=== PATIENT | female | born 1950 | race Caucasian/White ===

== ENCOUNTER 2021-07-06 09:01 | Outpatient (CLI) | payer MEDICARE, SELFPAY ==
[2021-07-06 09:42] LABS: Basophils # 0.1 10^3/uL (0.0-0.1); Basophils % 0.7 %; Eosinophils # 0.1 10^3/uL (0.0-0.8); Eosinophils % 1.7 %; Hematocrit 43.9 % (37.0-47.0); Lymphocytes # 2.3 10^3/uL (0.8-4.8); Lymphocytes % 31.8 %; Mean Corpuscular HGB Conc 31.9 g/dL (30.0-36.0); Mean Corpuscular Hemoglobin 28.5 pg (28.0-34.0); Mean Corpuscular Volume 89.2 fl (81-99); Mean Platelet Volume 9.1 fL (7.4-10.4); Monocytes # 0.7 10^3/uL (0.2-0.9); Monocytes % 9.6 %; Neutrophils # 4.07 10^3/uL (1.8-7.7); Neutrophils % 55.9 %; Nucleated Red Blood Cells % 0 %; Platelet Count 393 10^3/cmm (130-400); Red Blood Count 4.92 10^6/uL (4.1-5.3); Red Cell Distribution Width 12.4 % (12.1-15.1); White Blood Count 7.3 10^3/uL (4.0-10.0)
[2021-07-06 10:00] LABS: Estmated Average Glucose 146; Hemoglobin A1C 6.7 % (4.0-6.0)
[2021-07-06 10:11] LABS: Alanine Aminotransferase 34 U/L (0-33); Albumin Level 3.9 g/dL (3.5-5.2); Alkaline Phosphatase 110 IU/L (35-105); Aspartate Amino Transferase 30 U/L (0-32); Blood Urea Nitrogen 16 mg/dL (8-23); Calcium 8.1 mg/dL (8.5-10.5); Carbon Dioxide 23 mmol/L (22-29); Chloride 101 mmol/L (98-107); Chol HDL Ratio 2.55 mg/dL (0.0-4.40); Cholesterol 97 mg/dL (0-200); Globulin 2.2 g/dL (1.3-4.6); Glucose 89 mg/dL (65-115); HDL Cholesterol 38 mg/dL (60-100); LDL Cholesterol Calculated 45 mg/dL (50-129); LDL HDL Ratio 1.18 RATIO (0.00-3.22); Osmolality Calculated 283 mOsm/kg (285-295); Sodium 136 mmol/L (136-145); Thyroid Stimulating Hormone 3.71 uIU/mL (0.27-4.20); Total Bilirubin 0.4 mg/dL (0.15-1.2); Total Protein 6.1 g/dL (6.6-8.7); Triglycerides 69 mg/dL (0-150)
== END 2021-07-06 09:02 | disposition home or self-care (01) ==
PROVIDERS: Visit Provider Clinical Nurse Specialist Adult Health
DX: R73.01 Impaired fasting glucose (principal); E78.5 Hyperlipidemia, unspecified
CPT/HCPCS: 80053; 80061; 83036; 84443; 85025

== ENCOUNTER 2021-11-18 13:46 | Emergency (ER) | payer MEDICARE, SELFPAY ==
[2021-11-18 13:53] VITALS: BP 119/85; PULSE 93; RESP 16; TEMP 35.8; O2SAT 97; BMI 24.0
--- NOTE | 2021-11-18 14:02 | ED_ITS ---
HPI - General Adult General: Chief complaint: General Medical Stated complaint: NOSE BLEED Time Seen by Provider: 11/18/21 13:51 History of Present Illness: Patient is 71-year-old female with a history of prior CVA complicated by expressive aphasia on aspirin presented to the emergenc y room with complaints of 2 days of nosebleed. Patient reports 3 episodes of left-sided nosebleed over the last 2 days. Patient denies any heavy bleeding, anticoagulation use, and trauma to the nose or nose picking. Patient denies any cocaine or drug use Onset:2 days ago Duration:2 days Location:home Severity:moderate Associated symptoms: Deny chest pain, dyspnea, nausea, rash, palpitations or vomiting Review of Systems Const: Denies: fever(s) or chills Eyes: Denies: change in vision ENMT: Reports: other (+L sided nose bleed); Denies: mouth pain Card: Denies: chest pain or palpitations Resp: Denies: dyspnea or non-productive cough GI: Denies: abdominal pain, nausea, vomiting or diarrhea : Denies: dysuria Musc: Denies: extremity pain Skin/Breast: Denies: rash or new lesions Neuro: Denies: weakness in extremities Psych: Reports: other (Normal mood) Marbin/Lymph: Denies: easy bruising PFSH ED PFSH: Medical History Stroke Social History Smoking and tobacco status: never smoked Alcohol intake: never Substance/Drug Use: never Physical Exam Const: COMMON NORMALS: alert HENMT: COMMON NORMALS: atraumatic HEAD & SCALP: atraumatic MOUTH: moist mucous membranes not abnormal OTHER: +dried blood in the L nare Eye: COMMON NORMALS: EOMs intact bilaterally and conjunctivae normal CONJUNCTIVA: Yes conjunctivae normal Neck/C-Spine: COMMON NORMALS: full ROM and supple Resp: COMMON NORMALS: normal respiratory effort and clear to auscultation bilaterally AUSCULTATION: clear to auscultation bilaterally Cardio: COMMON NORMALS: regular rate RATE: regular rate GI: COMMON NORMALS: Soft to palpation and non-tender PALPATION: Yes Soft to palpation Extremity: COMMON NORMALS: full ROM Neuro: SENSORIUM/ORIENTATION: Yes alert MOTOR EXAM: No Abnormal motor strength present and Other motor observations present (no focal motor deficits) Psych: COMMON NORMALS: speech normal SPEECH: Yes normal speech MOOD & AFFECT: Yes euthymic mood Course Vital Signs: Vital signs: Vital Signs Temperature 96.4 F L 11/18/21 13:53 Pulse Rate 93 11/18/21 13:53 Respiratory Rate 16 11/18/21 13:53 Blood Pressure 119/85 11/18/21 13:53 Pulse Oximetry 97 11/18/21 13:53 MDM - General Adult Medical Decision Making 71-year-old female presents emergency room with complaints of nosebleed. No active bleeding currently. H&H appears to be stable. Patient is not on any anticoagulation. Do not suspect posterior nosebleed. Rx afrin PRN nose bleed Disposition: Discharge. Patient counseled regarding diagnostic impression, treatment plan. Patient given ED strict return precautions to return for continuation, worsening, or development of new symptoms. Instructed to f/u w/ PCP regarding symptoms today. Patient verbalized understanding. Coding Level of Care Code ED Meal Attendant for Jolly Martinez
[2021-11-18 14:10] LABS: Basophils # 0.1 10^3/uL (0.0-0.1); Basophils % 0.9 %; Eosinophils # 0.2 10^3/uL (0.0-0.8); Eosinophils % 2.4 %; Hematocrit 44.7 % (37.0-47.0); Hemoglobin 14.5 g/dL (11.5-15.3); Lymphocytes # 1.9 10^3/uL (0.8-4.8); Mean Corpuscular HGB Conc 32.4 g/dL (30.0-36.0); Mean Corpuscular Hemoglobin 28.7 pg (28.0-34.0); Mean Corpuscular Volume 88.5 fl (81-99); Mean Platelet Volume 8.7 fL (7.4-10.4); Monocytes # 0.4 10^3/uL (0.2-0.9); Monocytes % 6.4 %; Neutrophils # 4.02 10^3/uL (1.8-7.7); Neutrophils % 61.1 %; Nucleated Red Blood Cells % 0 %; Platelet Count 317 10^3/cmm (130-400); Red Blood Count 5.05 10^6/uL (4.1-5.3); Red Cell Distribution Width 12.9 % (12.1-15.1); White Blood Count 6.6 10^3/uL (4.0-10.0)
[2021-11-18 14:27] LABS: Anion Gap 14.2 (5-19); Blood Urea Nitrogen 9 mg/dL (8-23); Calcium 9.8 mg/dL (8.5-10.5); Carbon Dioxide 28 mmol/L (22-29); Chloride 101 mmol/L (98-107); Glucose 138 mg/dL (65-115); Osmolality Calculated 289 mOsm/kg (285-295); Potassium 4.2 mmol/L (3.5-5.1); Sodium 139 mmol/L (136-145)
[2021-11-18 14:40] VITALS: BP 122/61; PULSE 66; RESP 18; TEMP 36.6; O2SAT 96
== END 2021-11-18 14:59 | disposition home or self-care (01) ==
PROVIDERS: Emergency Provider Emergency Medicine
DX: R04.0 Epistaxis (principal); Z79.82 Long term (current) use of aspirin
CPT/HCPCS: 80048; 85025; 99282

== ENCOUNTER 2022-06-12 13:33 | Outpatient (CLI) | payer MEDICARE, SELFPAY ==
--- NOTE | 2022-06-12 13:45 | USCV_ITS ---
Sabiha Tolbert Age: 72 Gender: F : 1950 Exam Date: 06/12/2022 13:43 Ordering Phys: Scott Mon NP Technologist: [place] [facility] [place]: arterial insufficiency Risk Factors: Previous Vascular Surgery: RIGHT LEFT BP: 108.0 / 69.00 BP: 113.0/ 79.00 0 0 Waveform Velocity (cm/s) Velocity (cm/s) Waveform Triphasic 60.7 Iliac Prox Triphasic 59.8 Iliac Mid Triphasic 64.6 Iliac Distal Triphasic 63.2 LICENSED SALES PRODUCER Triphasic 65.1 SFA Prox Triphasic 71.5 SFA Mid Triphasic 79.7 SFA Dist Triphasic 41.8 POP Triphasic 85.5 CHIMNEY MECHANIC Triphasic 85.0 DPA 1.1 ARMAND 1.1 FINDINGS Resting ARMAND 1.1 bilaterally Normal arterial Doppler waveforms and Doppler flow velocities on the right side Intimal thickening and minimal plaques in the femoral and infrapopliteal vessels on the right side CONCLUSIONS Normal resting ABIs bilaterally Intimal thickening and minimal plaques in the femoral and infrapopliteal vessels on the right side No significant arterial obstruction, based on the above findings Dr Caitlyn Han MD [facility] (Electronically Signed) Final Date: 13 June 2022 08:08 S
== END 2022-06-12 13:34 | disposition home or self-care (01) ==
LOC: RAD 13:34
PROVIDERS: PCP Family Medicine; Visit Provider Clinical Nurse Specialist Adult Health
DX: I73.9 Peripheral vascular disease, unspecified (principal)
CPT/HCPCS: 93926

== ENCOUNTER → 2022-06-25 15:30 | Outpatient (BNVA) | payer MEDICARE, OTHER, SELFPAY | PROVIDERS: PCP Family Medicine; Visit Provider Clinical Nurse Specialist Adult Health | DX: E11.9 Type 2 diabetes mellitus without complications (principal); R60.9 Edema, unspecified | CPT/HCPCS: 80053; 83036; 83880; 85025 ==

== ENCOUNTER 2022-08-07 19:18 | Outpatient (CLI) | payer MEDICARE, OTHER, SELFPAY ==
[2022-08-07 19:41] LABS: Urine Color Light yellow (Yellow)
[2022-08-07 19:42] LABS: Add Urine Microscopic? YES; Bacteria Urine 3+ /hpf; Bilirubin Urine Neg (Negative); Blood Urine Neg (Negative); Glucose Urine UA Norm (Normal); Ketones Urine Negative (Negative); Leukocyte Esterase Urine Negative (Negative); Nitrate Urine Positive (Negative); Protein Urine Neg (Negative); Urine Appearance Hazy (CLEAR); Urobilinogen Urine Neg (Negative); WBC Urine RARE /hpf (0-5); pH Urine 5 (5-7)
[2022-08-07 19:43] LABS: Add Urine Culture? No
== END 2022-08-07 19:19 | disposition home or self-care (01) ==
PROVIDERS: PCP Clinical Nurse Specialist Adult Health; Visit Provider Clinical Nurse Specialist Adult Health
DX: N39.0 Urinary tract infection, site not specified (principal)
CPT/HCPCS: 81001; 87077; 87086; 87186

== ENCOUNTER → 2022-09-10 12:08 | Outpatient (BNVA) | payer MEDICARE, SELFPAY | PROVIDERS: PCP Clinical Nurse Specialist Adult Health; Visit Provider Clinical Nurse Specialist Adult Health | DX: E11.9 Type 2 diabetes mellitus without complications (principal); R60.9 Edema, unspecified | CPT/HCPCS: 80053; 85025; 85651; 86140 ==

== ENCOUNTER → 2022-12-04 15:13 | Outpatient (BNVA) | payer MEDICARE, SELFPAY | PROVIDERS: PCP Clinical Nurse Specialist Adult Health; Visit Provider Clinical Nurse Specialist Adult Health | DX: R60.9 Edema, unspecified (principal) | CPT/HCPCS: 80053; 83880 ==

== ENCOUNTER 2022-12-20 09:23 | Outpatient (CLI) | payer MEDICARE, OTHER, SELFPAY ==
--- NOTE | 2022-12-20 09:30 | USCV_ITS ---
Sabiha Tolbert Age: 72 Gender: F : 1950 Exam Date: 12/20/2022 09:56 Ordering Phys: Scott Mon NP Technologist: KALLIE Exam Location: [facility] – [place], [place] Indication: FLUID RETENTION BP: 134 / 82 HR: 73 Rhythm: Sinus Technical Quality: Suboptimal MEASUREMENTS (Male / Female) Normal Values 2D ECHO LVOT Diameter 2.0 cm LV Ejection Fraction MOD 2C 69.0 % LV Ejection Fraction 2C AL 76.0 % LA Diameter 2.9 cm LA Width 2.4 cm LA Height 2.9 cm RA Width 2.8 cm RA Height 3.2 cm Aorta at Sinotubular Diameter 2.6 cm M-MODE Aortic Annulus Diameter 3.1 cm LA Ao Ratio MM 0.8 DOPPLER AV Peak Velocity 134.0 cm/s LVOT Peak Velocity 115.0 cm/s AV Area Cont Eq vti 2.8 cm squared AV Area Cont Eq pk 2.7 cm squared MV Peak Velocity 99.0 cm/s MV Area PHT 3.1 cm squared Mitral E to A Ratio 0.8 MV E' Velocity 43.5 cm/s Mitral E to MV E' Ratio 8.1 Mitral E to LV E' Lateral Ratio 7.7 Mitral E to LV E' Septal Ratio 8.5 TR Peak Velocity 121.2 cm/s TR Peak Gradient 5.9 mmHg TR Mean Velocity 100.2 cm/s TR Mean Gradient 4.1 mmHg TR Velocity Time Integral 30.1 cm TV Peak E Velocity 63.0 cm/s Right Atrial Pressure 8.0 mmHg Pulmonary Artery Systolic Pressu 13.9 mmHg PV Peak Velocity 92.0 cm/s RV Acceleration Time 0.1 s RV Ejection Time 0.3 s RV AcT/ET 0.4 FINDINGS Left Ventricle Normal left ventricular size, systolic function and wall thickness, with no regional wall motion abnormalities. Grade I/IV diastolic dysfunction (abnormal relaxation filling pattern), normal to mildly elevated filling pressures. Left ventricular ejection fraction is estimated at 65 %. Right Ventricle Normal right ventricular size and systolic function. Normal right ventricular systolic pressure. Right Atrium The right atrium is normal in size. Left Atrium The left atrium is normal in size. Mitral Valve Structurally normal mitral valve without significant stenosis or prolapse. There is no mitral regurgitation. Aortic Valve Structurally normal aortic valve without significant sclerosis or stenosis. There is no aortic regurgitation. Tricuspid Valve Trace tricuspid valve regurgitation. Structurally normal tricuspid valve. Pulmonic Valve Pulmonic valve not well visualized. Pericardium Normal pericardium without effusion. Aorta Normal ascending aorta dimension. IVC Inferior vena cava not visualized. CONCLUSIONS Normal left ventricular size, systolic function and wall thickness, with no regional wall motion abnormalities. Grade I/IV diastolic dysfunction (abnormal relaxation filling pattern), normal to mildly elevated filling pressures. Left ventricular ejection fraction is estimated at 65 %. There are no prior echocardiogram studies to compare. Dr. Rohit Gaitan MD (Electronically Signed) Final Date: 20 December 2022 14:19 S
== END 2022-12-20 09:24 | disposition home or self-care (01) ==
PROVIDERS: PCP Clinical Nurse Specialist Adult Health; Visit Provider Clinical Nurse Specialist Adult Health
DX: R60.9 Edema, unspecified (principal); I51.89 Other ill-defined heart diseases
CPT/HCPCS: 93306

== ENCOUNTER 2023-07-02 13:33 | Outpatient (CLI) | payer MEDICARE, SELFPAY ==
[2023-07-02 16:18] LABS: Anion Gap 15.4 (5-19); Blood Urea Nitrogen 12 mg/dL (8-23); Calcium 9.8 mg/dL (8.5-10.5); Carbon Dioxide 29 mmol/L (22-29); Chloride 98 mmol/L (98-107); Glucose 230 mg/dL (65-115); Osmolality Calculated 293 mOsm/kg (285-295); Potassium 4.4 mmol/L (3.5-5.1); Sodium 138 mmol/L (136-145)
== END 2023-07-02 13:34 | disposition home or self-care (01) ==
PROVIDERS: PCP Clinical Nurse Specialist Adult Health; Visit Provider Clinical Nurse Specialist Adult Health
DX: R60.9 Edema, unspecified (principal); I50.32 Chronic diastolic (congestive) heart failure; R94.4 Abnormal results of kidney function studies
CPT/HCPCS: 80048

== ENCOUNTER 2023-08-17 15:37 | Emergency (ER) | payer MEDICARE, OTHER, SELFPAY ==
[2023-08-17 15:41] VITALS: BP 143/90; PULSE 77; TEMP 36.8; O2SAT 96
--- NOTE | 2023-08-17 15:44 | ED_ITS ---
HPI - General Adult 2 General: Chief complaint: GI Bleed Stated complaint: RECTAL BLEED Time Seen by Provider: 08/17/23 15:39 Source: patient and EMS Mode of arrival: EMS Limitations: no limitations History of Present Illness: 73-year-old female here from nursing nicolette e states that she had a bowel movement had some bright red blood in her stool with her bowel movement today at the half-way. She denies any abdominal pain denies any weakness blood pressure here is normal no black stools no vomiting. Associated symptoms: Deny chest pain, dyspnea, headache(s), nausea, rash or vomiting Review of Systems 2 Const: Denies: fever(s), chills, body aches or change in appetite ENMT: Denies: throat pain or dental pain Card: Denies: chest pain Resp: Denies: dyspnea GI: Reports: hematochezia; Denies: abdominal pain, nausea, vomiting or diarrhea Musc: Denies: neck pain or back pain Skin/Breast: Denies: rash Neuro: Denies: headache(s) PFSH ED 2 PFSH: Medical History (Updated 08/17/23 @ 18:18 by Alber Malik MD) Chronic diastolic heart failure echo 12/2022 EF normal. 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) cause unknown Stroke Surgical History History of thyroid surgery Hx of hysterectomy Family History Father Stroke Mother Parkinson disease Social History Smoking and tobacco/nicotine status: never used tobacco/nicotine Alcohol intake: never Substance/Drug Use: never Physical Exam 2 Const: COMMON NORMALS: no acute distress, patient oriented x3 and healthy appearing HENMT: COMMON NORMALS: normocephalic and atraumatic HEAD & SCALP: n ormocephalic and atraumatic Neck/C-Spine: COMMON NORMALS: full ROM and supple Chest: COMMONS NORMALS: normal inspection of the chest Resp: COMMON NORMALS: normal respiratory effort, No use of accessory muscles and clear to auscultation bilaterally AUSCULTATION: clear to auscultation bilaterally Cardio: COMMON NORMALS: regular rate, regular rhythm and No murmurs present (Cardio) RATE: regular rate RHYTHM: regular rhythm GI: COMMON NORMALS: Normal to inspection, nondistended, normoactive bowel sounds present, Soft to palpation, non-tender and no masses PALPATION: Yes Soft to palpation OTHER: Rectal exam does show a hemorrhoid no bleeding at this time Hemoccult is negative Extremity: COMMON NORMALS: normal to inspection and full ROM Neuro: COMMON NORMALS: patient oriented x3, moves all extremities and no focal motor deficits Psych: COMMON NORMALS: mental status grossly normal, Normal thought process present and cooperative THOUGHT PROCESS: Normal thought process present Skin: COMMON NORMALS: no rashes or lesions noted and no wounds GENERAL SKIN EXAM: no rashes or lesions noted Course 2 Vital Signs: Vital signs: Vital Signs Temperature 98.2 F 08/17/23 15:41 Pulse Rate 77 08/17/23 15:41 Blood Pressure 143/90 08/17/23 15:41 Pulse Oximetry 96 08/17/23 15:41 Oxygen Delivery Me thod Room Air 08/17/23 15:41 MDM - General Adult Medical Decision Making Patient presents here with concern for possible GI bleed her rectal exam here shows no blood is Hemoccult negative she does have a small hemorrhoid blood works normal hemoglobin is normal no signs of any large GI bleeding she stable for discharge back to half-way. Medical Records I reviewed the patient's medical records. Lab Data I reviewed the patient's lab results. 08/17/23 18:06 08/17/23 16:55 Laboratory Results WBC 7.07 10^3/uL (3.29-11.43) 08/17/23 18:06 RBC 4.75 10^6/uL (3.85-5.65) 08/17/23 18:06 Hgb 13.70 g/dL (11.27-16.99) 08/17/23 18:06 Hct 42.0 % (36-47) 08/17/23 18:06 MCV 88.4 fl (85-98) 08/17/23 18:06 MCH 28.8 pg (27-33) 08/17/23 18:06 MCHC 32.6 g/dL (30-55) 08/17/23 18:06 RDW 12.3 % (12.1-15.1) 08/17/23 18:06 Plt Count 281 10^3/cmm (157-399) 08/17/23 18:06 MPV 8.8 fL (7.4-10.4) 08/17/23 18:06 Neut % (Auto) 53.6 % 08/17/23 18:06 Lymph % (Auto) 31.0 % 08/17/23 18:06 [place] % (Auto) 10.0 % 08/17/23 18:06 Eos % (Auto) 4.1 % 08/17/23 18:06 Baso % (Auto) 1.0 % 08/17/23 18:06 Neut # (Auto) 3.79 10^3/uL (1.8-7.7) 08/17/23 18:06 Lymph # (Auto) 2.2 10^3/uL (0.8-4.8) 08/17/23 18:06 [place] # (Auto) 0.7 10^3/uL (0.2-0.9) 08/17/23 18:06 Eos # (Auto) 0.3 10^3/uL (0.0-0.8) 08/17/23 18:06 Baso # (Auto) 0.1 10^3/uL (0.0-0.1) 08/17/23 18:06 Nucleated RBC % (auto) 0 % 08/17/23 18:06 Nucleated RBCs # 0.0 /100WBC 08/17/23 18:06 PT 12.70 SECONDS (12.1-14.9) 08/17/23 16:55 INR 0.92 (0.8-1.2) 08/17/23 16:55 Sodium 136 mmol/L (136-145) 08/17/23 16:55 Potassium 4.6 mmol/L (3.5-5.1) 08/17/23 16:55 Chloride 99 mmol/L (98-107) 08/17/23 16:55 Carbon Dioxide 30 mmol/L (22-29) H 08/17/23 16:55 Anion Gap 11.6 (5-19) 08/17/23 16:55 BUN 12 mg/dL (8-23) 08/17/23 16:55 Creatinine 0.8 mg/dL (0.5-0.9) 08/17/23 16:55 GFR Calculation Not Reportable 08/17/23 16:55 Glucose 128 mg/dL (65-115) H 08/17/23 16:55 Calculated Osmolality 283 mOsm/kg (285-295) L 08/17/23 16:55 Calcium 9.6 mg/dL (8.5-10.5) 08/17/23 16:55 Total Bilirubin 0.3 mg/dL (0.15-1.2) 08/17/23 16:55 AST 20 U/L (0-32) 08/17/23 16:55 ALT 30 U/L (0-33) 08/17/23 16:55 Alkaline Phosphatase 113 U/L (35-105) H 08/17/23 16:55 Total Protein 6.5 g/dL (6.6-8.7) L 08/17/23 16:55 Albumin 4.3 g/dL (3.5-5.2) 08/17/23 16:55 Globulin 2.2 g/dL (1.3-4.6) 08/17/23 16:55 Blood Type O Positive 08/17/23 16:55 Rho(D) Type Rh positive 08/17/23 16:55 Antibody Screen Negative 08/17/23 16:55 No radiology studies performed this visit Discharge Plan Discharge Patient Disposition: Home Clinical Impression: Hemorrhoids Prescriptions: No Action aspirin 81 mg tablet,delayed release (DR/EC) 81 mg PO DAILY metformin 500 mg tablet 500 mg PO DAILY atorvastatin 40 mg tablet 40 mg PO DAILY Saline Nasal 0.65 % aerosol,spray 1 spray intranasal BID PRN (Reason: nasal congestion) loratadine [Allergy Relief (loratadine)] 10 mg tablet 10 mg PO DAILY albuterol sulfate 90 mcg/actuation HFA aerosol inhaler 2 inh inhalation QID PRN (Reason: shortness of breath or wheezing) Qty: 8.5 2RF sennosides [senna] 8.6 mg tablet PO duloxetine 30 mg capsule,delayed release(DR/EC) 30 mg PO .every other day Qty: 15 6RF (DME) Inhaler spacer See Rx Instructions .Route .MEDSUPPLY Qty: 1 0RF Rx Instructions: As directed docusate sodium 100 mg capsule 200 mg PO BID Qty: 120 11RF tramadol 50 mg tablet 50 mg PO BID PRN (Reason: pain) Qty: 60 2RF furosemide [Lasix] 20 mg tablet 20 mg PO DAILY Qty: 30 2RF polyethylene glycol 3350 [Miralax] 17 gram/dose powder 4 g PO DAILY Qty: 119 11RF nystatin 100,000 unit/gram powder 1 applic topical BID Qty: 60 3RF Rx Instructions: apply under both breasts BID Discharge Orders: Discharge ED (Routine); Ordered 08/17/23 Ordered By: Alber Malik Referrals: Scott Mon EMULSIFICATION OPERATOR [Primary Care Provider] - 1-3 days Discharge Diet: Advance as tolerated Discharge Activity: Resume usual activity Patient Instructions: Hemorrhoids (ED) Coding Level of Care Code ED Wall And Floor Tiler for Jolly Martinez
[2023-08-17 17:20] LABS: INR 0.92 (0.8-1.2)
[2023-08-17 17:28] LABS: Alanine Aminotransferase 30 U/L (0-33); Albumin Level 4.3 g/dL (3.5-5.2); Alkaline Phosphatase 113 U/L (35-105); Anion Gap 11.6 (5-19); Aspartate Amino Transferase 20 U/L (0-32); Blood Urea Nitrogen 12 mg/dL (8-23); Calcium 9.6 mg/dL (8.5-10.5); Carbon Dioxide 30 mmol/L (22-29); Chloride 99 mmol/L (98-107); Creatinine Clr Calc Pharmacy 63.3292; Globulin 2.2 g/dL (1.3-4.6); Glucose 128 mg/dL (65-115); Osmolality Calculated 283 mOsm/kg (285-295); Potassium 4.6 mmol/L (3.5-5.1); Sodium 136 mmol/L (136-145); Total Bilirubin 0.3 mg/dL (0.15-1.2); Total Protein 6.5 g/dL (6.6-8.7)
[2023-08-17 18:10] LABS: Basophils # 0.1 10^3/uL (0.0-0.1); Eosinophils # 0.3 10^3/uL (0.0-0.8); Eosinophils % 4.1 %; Lymphocytes # 2.2 10^3/uL (0.8-4.8); Mean Corpuscular HGB Conc 32.6 g/dL (30-55); Mean Corpuscular Hemoglobin 28.8 pg (27-33); Mean Corpuscular Volume 88.4 fl (85-98); Mean Platelet Volume 8.8 fL (7.4-10.4); Monocytes # 0.7 10^3/uL (0.2-0.9); Neutrophils # 3.79 10^3/uL (1.8-7.7); Neutrophils % 53.6 %; Nucleated Red Blood Cells % 0 %; Platelet Count 281 10^3/cmm (157-399); Red Blood Count 4.75 10^6/uL (3.85-5.65); Red Cell Distribution Width 12.3 % (12.1-15.1); White Blood Count 7.07 10^3/uL (3.29-11.43)
[2023-08-17 21:14] VITALS: BP 147/92; PULSE 94; RESP 18; O2SAT 92
== END 2023-08-17 21:32 | disposition home or self-care (01) ==
PROVIDERS: Emergency Provider Emergency Medicine; PCP Clinical Nurse Specialist Adult Health
DX: K64.9 Unspecified hemorrhoids (principal); Z79.82 Long term (current) use of aspirin; Z79.84 Long term (current) use of oral hypoglycemic drugs; I11.0 Hypertensive heart disease with heart failure; I50.32 Chronic diastolic (congestive) heart failure; E11.9 Type 2 diabetes mellitus without complications; E78.5 Hyperlipidemia, unspecified; Z86.73 Personal history of transient ischemic attack (TIA), and cerebral infarction without residual deficits
CPT/HCPCS: 80053; 85025; 85610; 86850; 86900; 99283

== ENCOUNTER 2023-11-06 15:01 | Emergency (ER) | payer MEDICARE, SELFPAY ==
[2023-11-06 15:03] VITALS: BP 126/96; PULSE 107; RESP 16; TEMP 37; O2SAT 95; BMI 32.5
--- NOTE | 2023-11-06 15:04 | ECG_ITS ---
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 Measurements Intervals [place] Rate: 110 P: 63 NV: 163 QRS: 70 QRSD: 79 T: 69 QT: 325 QTc: 440 Interpretive Statements SINUS TACHYCARDIA SEPTAL MYOCARDIAL INFARCTION , PROBABLY OLD [40+ ms Q WAVE IN V1/V2] No previous ECG available for comparison Electronically Signed On 11-06-2023 17:06:05 CDT by Isaac Diaz M.D. [email or web address]
--- NOTE | 2023-11-06 15:04 | XR_ITS ---
WS: [id number] Portable AP upright chest, 11/06/2023 Clinical Data: cp Comparison: None. Findings: No nodules, masses or effusions are seen. The heart is normal. The pulmonary vascularity is not increased. No pneumonia or pneumothorax is seen. The aortic arch and descending thoracic aorta c alcification and mild tortuosity. There is a minimal dextroscoliosis of the thoracic spine. XR/XR chest 1V portable [id number] Impression: Atherosclerosis
--- NOTE | 2023-11-06 15:17 | CTR_ITS ---
PROCEDURE INFORMATION: Exam: CTA Chest With Contrast Exam date and time: 11/06/2023 4:24 PM Age: 73 years old Clinical indication: Dyspnea; Additional info: SOB TECHNIQUE: Imaging protocol: Computed tomographic angiography of the chest with contrast. Exam focused on the arteries. 3D rendering (Not supervised by radiologist): MIP and/or 3D reconstructed images were created by the technologist. Radiation optimization: All CT scans at this facility use at least one of these dose optimization techniques: automated exposure control; mA and/or kV adjustment per patient size (includes targeted exams where dose is matched to clinical indication); or iterative reconstruction. Contrast material: OMNI 350; Contrast volume: 62 ml; Contrast route: INTRAVENOUS (IV); COMPARISON: CR XR chest 1V portable [id number] 11/06/2023 3:11 PM RADIATION DOSE METRICS: Total DLP (mGy-cm): 443.27 FINDINGS: Pulmonary arteries: No evidence of pulmonary thromboembolism. Aorta: No evidence of aneurysmal dilatation or dissection of the thoracic aorta. Thyroid: Grossly unremarkable. Lungs: No focal consolidation. No evidence of pneumonia. Pleural spaces: No evidence of pleural effusion. No pneumothorax. Heart: No cardiomegaly. No pericardial effusion. Mediastinal space: No evidence of mediastinal mass, fluid collection or hematoma. Lymph nodes: No mediastinal or hilar adenopathy. Bones/joints: No evidence of acute fracture or aggressive osseous lesion. Soft tissues: No evidence of fluid collection or hematoma in the superficial soft tissues. Other findings: No evidence of acute abnormality in the upper abdomen. CT/CT angio chest PE protcl [id number] IMPRESSION: 1. No evidence of PE or acute aortic abnormality.
--- NOTE | 2023-11-06 15:28 | ED_ITS ---
HPI - Chest Pain 2 General: Chief Complaint: Chest Pain Stated Complaint: cp, sob Time Seen by Provider: 11/06/23 15:03 Source: patient and EMS Mode of arrival: EMS Limitations: no limitations History of Present Illness: 73-year-old female here from [facility] living she been complaining of chest pain she states she had a sharp pain in the center of her chest for the last 2 days. She had some dyspnea as well denies any cough she denies any fever rates her pain a 6 out of 10 currently denies any worsening improving factors. She had a history of a CVA in the past Associated symptoms: Reports dyspnea; Deny abdominal pain, fever(s), nausea or vomiting Review of Systems 2 Const: Denies: fever(s), chills, body aches or change in appetite ENMT: Denies: throat pain or dental pain Card: Reports: chest pain Resp: Reports: dyspnea GI: Denies: abdominal pain, nausea, vomiting or diarrhea Musc: Denies: neck pain or back pain Skin/Breast: Denies: rash Neuro: Denies: headache(s) PFSH ED 2 PFSH: Medical History (Updated 11/06/23 @ 17:41 by Alber Malik MD) Chronic diastolic heart failure echo 12/2022 EF normal. 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) cause unknown Stroke Surgical History History of thyroid surgery Hx of hysterectomy Family History Father Stroke Mother Parkinson disease Social History Smoking and tobacco/nicotine status: never used tobacco/nicotine Alcohol intake: never Substance/Drug Use: never Physical Exam 2 Const: COMMON NORMALS: no acute distress, patient oriented x3 and healthy appearing HENMT: COMMON NORMALS: normocephalic and atraumatic HEAD & SCALP: n ormocephalic and atraumatic Eye: COMMON NORMALS: conjunctivae normal CONJUNCTIVA: Yes conjunctivae normal Neck/C-Spine: COMMON NORMALS: full ROM and supple Chest: COMMONS NORMALS: normal inspection of the chest Resp: COMMON NORMALS: normal respiratory effort, No retractions, No use of accessory muscles and clear to auscultation bilaterally AUSCULTATION: clear to auscultation bilaterally Cardio: COMMON NORMALS: regular rhythm and No murmurs present (Cardio) R ATE: tachycardic RHYTHM: regular rhythm GI: COMMON NORMALS: Normal to inspection, nondistended, normoactive bowel sounds present, Soft to palpation, non-tender and no masses PALPATION: Yes Soft to palpation Extremity: COMMON NORMALS: normal to inspection and full ROM Neuro: COMMON NORMALS: patient oriented x3, moves all extremities and no focal motor deficits Psych: COMMON NORMALS: mental status grossly normal, Normal thought process present and cooperative THOUGHT PROCESS: Normal thought process present Skin: COMMON NORMALS: no rashes or lesions noted and no wounds GENERAL SKIN EXAM: no rashes or lesions noted Course 2 Vital Signs: Vital signs: Vital Signs Temperature 98.6 F 11/06/23 15:03 Pulse Rate 98 11/06/23 16:07 Respiratory Rate 16 11/06/23 15:03 Blood Pressure 102/70 11/06/23 16:07 Pulse Oximetry 96 11/06/23 16:07 Oxygen Delivery Me thod Room Air 11/06/23 16:07 MDM - Chest Pain Medical Decision Making Patient presented here with chest pain her chest pain since resolved her CT shows no aneurysm or PE. Initial troponin is 13 patient refused her 2-hour troponin drawn wants to go back to the residential did speak to her and informed like to check a 2-hour troponin to rule ACS out and cannot truly rule out an NSTEMI without it she understands this and states that she feels improved and just wants to go back home she will sign out AMA return if worsening Medical Records I reviewed the patient's medical records. Lab Data I reviewed the patient's lab results. 11/06/23 15:26 11/06/23 15:26 Radiology Impressions Chest X-Ray 11/06/23 15:04 Impression: Atherosclerosis Chest CTA 11/06/23 15:17 IMPRESSION: 1. No evidence of PE or acute aortic abnormality. Laboratory Results WBC 12.71 10^3/uL (3.29-11.43) H 11/06/23 15:26 RBC 4.81 10^6/uL (3.85-5.65) 11/06/23 15: Hgb 13.80 g/dL (11.27-16.99) 11/06/23 15: Hct 42.9 % (36-47) 11/06/23 15: MCV 89.2 fl (85-98) 11/06/23 15:26 MCH 28.7 pg (27-33) 11/06/23 15: MCHC 32.2 g/dL (30-55) 11/06/23 15:26 RDW 12.4 % (12.1-15.1) 11/06/23 15: Plt Count 268 10^3/cmm (157-399) 11/06/23 15: MPV 8.9 fL (7.4-10.4) 11/06/23 15: Neut % (Auto) 83.3 % 11/06/23 15: Lymph % (Auto) 9.3 % 11/06/23: [place] % (Auto) 6.2 % 11/06/23 15: Eos % (Auto) 0.6 % 11/06/23 15: Baso % (Auto) 0.3 % 11/06/23: Neut # (Auto) 10.59 10^3/uL (1.8-7.7) H 11/06/23 15: Lymph # (Auto) 1.2 10^3/uL (0.8-4.8) 11/06/23 15: [place] # (Auto) 0.8 10^3/uL (0.2-0.9) 11/06/23: Eos # (Auto) 0.1 10^3/uL (0.0-0.8) 11/06/23: Baso # (Auto) 0.0 10^3/uL (0.0-0.1) 11/06/23: Nucleated RBC % (auto) 0 % 11/06/23: Nucleated RBCs # 0.0 /100WBC 11/06/23 15: PT 13.00 SECONDS (12.1-14.9) 11/06/23: INR 0.96 (0.8-1.2) 11/06/23 15:26 Sodium 137 mmol/L (136-145) 11/06/23 15:26 Potassium 4.4 mmol/L (3.5-5.1) 11/06/23 15:26 Chloride 98 mmol/L (98-107) 11/06/23 15:26 Carbon Dioxide 28 mmol/L (22-29) 11/06/23 15:26 Anion Gap 15.4 (5-19) 11/06/23 15:26 BUN 8 mg/dL (8-23) 11/06/23 15:26 Creatinine 0.7 mg/dL (0.5-0.9) 11/06/23 15:26 GFR Calculation Not Reportable 11/06/23 15:26 Glucose 215 mg/dL (65-115) H 11/06/23 15:26 Calculated Osmolality 289 mOsm/kg (285-295) 11/06/23 15:26 Calcium 9.4 mg/dL (8.5-10.5) 11/06/23 15:26 Total Bilirubin 0.6 mg/dL (0.15-1.2) 11/06/23 15:26 AST 17 U/L (0-32) 11/06/23 15:26 ALT 32 U/L (0-33) 11/06/23 15:26 Alkaline Phosphatase 121 U/L (35-105) H 11/06/23 15:26 Troponin T Baseline 13 ng/L (0-10) H 11/06/23 15:26 NT-Pro-B Natriuret Pep 102 pg/mL (0-450) 11/06/23 15:26 Total Protein 7.1 g/dL (6.6-8.7) 11/06/23 15:26 Albumin 4.0 g/dL (3.5-5.2) 11/06/23 15:26 Globulin 3.1 g/dL (1.3-4.6) 11/06/23 15:26 All radiology interpretation(s) finalized by discharge EKG Data EKG 1: I personally reviewed and interpreted this EKG as follows: EKG interpretation date: 11/06/23 EKG interpretation time: 15:07 Interpretation: sinus tach hr [address] or t wave abnormalities qrs 79 qtc 390 Discharge Plan Discharge Patient Disposition: Left Against Medical Advice Clinical Impression: Chest pain Condition: Stable Prescriptions: No Action aspirin 81 mg tablet,delayed release (DR/EC) 81 mg PO DAILY metformin 500 mg tablet 500 mg PO DAILY atorvastatin 40 mg tablet 40 mg PO DAILY Saline Nasal 0.65 % aerosol,spray 1 spray intranasal BID PRN (Reason: nasal congestion) loratadine [Allergy Relief (loratadine)] 10 mg tablet 10 mg PO DAILY albuterol sulfate 90 mcg/actuation HFA aerosol inhaler 2 inh inhalation QID PRN (Reason: shortness of breath or wheezing) Qty: 8.5 2RF sennosides [senna] 8.6 mg tablet PO (DME) Inhaler spacer See Rx Instructions .Route .MEDSUPPLY Qty: 1 0RF Rx Instructions: As directed docusate sodium 100 mg capsule 200 mg PO BID Qty: 120 11RF furosemide [Lasix] 20 mg tablet 20 mg PO DAILY Qty: 30 2RF polyethylene glycol 3350 [Miralax] 17 gram/dose powder 4 g PO DAILY Qty: 119 11RF nystatin 100,000 unit/gram powder 1 applic topical BID Qty: 60 3RF Rx Instructions: apply under both breasts BID tramadol 50 mg tablet 50 mg PO BID PRN (Reason: pain) Qty: 60 2RF duloxetine 30 mg capsule,delayed release(DR/EC) 30 mg PO EVERY OTHER DAY Referrals: Scott Mon NP [Primary Care Provider] - Coding Level of Care Code ED Scarfer for Jolly Martinez
[2023-11-06 15:35] LABS: Basophils % 0.3 %; Eosinophils # 0.1 10^3/uL (0.0-0.8); Eosinophils % 0.6 %; Hematocrit 42.9 % (36-47); Lymphocytes # 1.2 10^3/uL (0.8-4.8); Lymphocytes % 9.3 %; Mean Corpuscular HGB Conc 32.2 g/dL (30-55); Mean Corpuscular Hemoglobin 28.7 pg (27-33); Mean Corpuscular Volume 89.2 fl (85-98); Mean Platelet Volume 8.9 fL (7.4-10.4); Monocytes # 0.8 10^3/uL (0.2-0.9); Monocytes % 6.2 %; Neutrophils # 10.59 10^3/uL (1.8-7.7); Neutrophils % 83.3 %; Nucleated Red Blood Cells % 0 %; Platelet Count 268 10^3/cmm (157-399); Red Blood Count 4.81 10^6/uL (3.85-5.65); Red Cell Distribution Width 12.4 % (12.1-15.1); White Blood Count 12.71 10^3/uL (3.29-11.43)
[2023-11-06 15:48] LABS: INR 0.96 (0.8-1.2)
[2023-11-06 15:57] LABS: Troponin(5th) Baseline 13 ng/L (0-10)
[2023-11-06 16:07] VITALS: BP 102/70; PULSE 98; O2SAT 96
[2023-11-06 16:07] LABS: Alanine Aminotransferase 32 U/L (0-33); Alkaline Phosphatase 121 U/L (35-105); Anion Gap 15.4 (5-19); Aspartate Amino Transferase 17 U/L (0-32); Blood Urea Nitrogen 8 mg/dL (8-23); Calcium 9.4 mg/dL (8.5-10.5); Carbon Dioxide 28 mmol/L (22-29); Chloride 98 mmol/L (98-107); Creatinine Clr Calc Pharmacy 64.5477; Globulin 3.1 g/dL (1.3-4.6); Glucose 215 mg/dL (65-115); NT Pro B Type Natriuretic Pept 102 pg/mL (0-450); Osmolality Calculated 289 mOsm/kg (285-295); Potassium 4.4 mmol/L (3.5-5.1); Sodium 137 mmol/L (136-145); Total Bilirubin 0.6 mg/dL (0.15-1.2); Total Protein 7.1 g/dL (6.6-8.7)
[2023-11-06] MEDS: iohexol 350 mg/mL 500 mL Btl (per mL) IV (16:30)
--- NOTE | 2023-11-06 17:04 | ECG_ITS ---
[facility] Test Date: 2023-11-06 Pat Name: Sabiha Tolbert Department: Room: Gender: Female Brand Attendant: : 1950 Requested By: Alber Malik Order Number: [id number] Arben MD: Isaac Diaz M.D. Measurements Intervals [place] Rate: 93 P: 43 [place]: 167 QRS: 67 QRSD: 81 T: 59 QT: 344 QTc: 429 Interpretive Statements SINUS RHYTHM Compared to ECG 11/06/2023 15:07:28 Sinus tachycardia no longer present Myocardial infarct finding no longer present Electronically Signed On 11-06-2023 17:11:24 CDT by Isaac Diaz M.D. [id number]
[2023-11-06 19:26] VITALS: BP 117/77; PULSE 106; RESP 18; O2SAT 93
--- NOTE | 2023-11-06 19:55 | PC.NURSE ---
Patient did refuse 2-hr blood draw for troponin. Dr Malik was notified, no further orders were received.
[2023-11-06 20:47] VITALS: BP 132/78; PULSE 97; RESP 20; O2SAT 91
[2023-11-06 22:30] VITALS: BP 108/69; O2SAT 91
== END 2023-11-06 23:45 | disposition home or self-care (01) ==
PROVIDERS: Emergency Provider Emergency Medicine; PCP Clinical Nurse Specialist Adult Health
DX: R07.9 Chest pain, unspecified (principal); Z79.82 Long term (current) use of aspirin; Z79.84 Long term (current) use of oral hypoglycemic drugs; I11.0 Hypertensive heart disease with heart failure; I50.32 Chronic diastolic (congestive) heart failure; E11.9 Type 2 diabetes mellitus without complications; E78.5 Hyperlipidemia, unspecified; Z86.73 Personal history of transient ischemic attack (TIA), and cerebral infarction without residual deficits
CPT/HCPCS: 36415; 71045; 71275; 80053; 83880; 84484; 85025; 85610; 93005; 99285; Q9967

== ENCOUNTER 2024-02-11 00:30 | Emergency (ER) | payer MEDICARE, SELFPAY ==
[2024-02-11] VITALS (9 sets, daily range): BP systolic 118–138; BP diastolic 86–112; PULSE 88–105; RESP 14–18; TEMP 36.5; O2SAT 93–97; BMI 29.5
--- NOTE | 2024-02-11 00:32 | ECG_ITS ---
[facility] Test Date: 2024-02-11 Pat Name: Sabiha Tolbert Department: Room: Gender: Female Administrative Support Manager: : 1950 Requested By: Zurdo Castellanos Order Number: [id number] Arben MD: Caitlyn Han M.D. Measurements Intervals [place] Rate: 93 P: 56 [place]: 205 QRS: 38 QRSD: 70 T: 50 QT: 329 QTc: 410 Interpretive Statements SINUS RHYTHM LOW QRS VOLTAGE IN PRECORDIAL LEADS [QRS DEFLECTION < 1.0 mV IN CHEST LEADS] MINIMAL ST DEPRESSION [0.025+ mV ST DEPRESSION] Compared to ECG 11/06/2023 17:09:35 Low QRS voltage now present ST (T wave) deviation now present Heavy baseline artifact. Need to repeat the study. Electronically Signed On 02-12-2024 8:56:59 CDT by Caitlyn Han M.D. [id number]
--- NOTE | 2024-02-11 00:44 | XRR_ITS ---
PROCEDURE INFORMATION: Exam: XR Abdomen Exam date and time: 02/11/2024 1:12 AM Age: 74 years old Clinical indication: Abdominal pain; Generalized; Additional info: Abdominal distention TECHNIQUE: Imaging protocol: Radiologic exam of the abdomen. Views: 2 Views. Upright and supine views. COMPARISON: CT angio chest PE protcl [id number] 11/06/2023 4:24 PM FINDINGS: Lungs: The lungs are clear. No pulmonary consolidation. Pleural spaces: No pleural effusion or pneumothorax. Heart/Mediastinum: Heart size is within normal limits. Gastrointestinal tract: Normal. No bowel dilation. Intraperitoneal space: Normal. No free air. Vasculature: Atherosclerotic calcifications of the aorta are noted. Bones/joints: No acute osseous abnormalities are seen. XR/XR acute abdomen series [id number] IMPRESSION: No acute cardiopulmonary disease.
[2024-02-11 00:50] LABS: Basophils # 0.1 10^3/uL (0.0-0.1); Basophils % 0.7 %; Eosinophils # 0.1 10^3/uL (0.0-0.8); Eosinophils % 1.6 %; Hematocrit 42.4 % (36-47); Lymphocytes # 1.6 10^3/uL (0.8-4.8); Lymphocytes % 18.7 %; Mean Corpuscular HGB Conc 31.6 g/dL (30-55); Mean Corpuscular Hemoglobin 27.8 pg (27-33); Mean Platelet Volume 8.7 fL (7.4-10.4); Monocytes # 0.7 10^3/uL (0.2-0.9); Monocytes % 7.8 %; Neutrophils # 6.05 10^3/uL (1.8-7.7); Neutrophils % 70.8 %; Nucleated Red Blood Cells % 0 %; Platelet Count 303 10^3/cmm (157-399); Red Blood Count 4.82 10^6/uL (3.85-5.65); Red Cell Distribution Width 12.7 % (12.1-15.1); White Blood Count 8.55 10^3/uL (3.29-11.43)
[2024-02-11 01:07] LABS: Alanine Aminotransferase 33 U/L (0-33); Albumin Level 4.1 g/dL (3.5-5.2); Alkaline Phosphatase 143 U/L (35-105); Anion Gap 16.6 (5-19); Aspartate Amino Transferase 19 U/L (0-32); Blood Urea Nitrogen 11 mg/dL (8-23); Calcium 9.4 mg/dL (8.5-10.5); Carbon Dioxide 28 mmol/L (22-29); Chloride 94 mmol/L (98-107); Creatinine Clr Calc Pharmacy 60.4701; Glucose 259 mg/dL (65-115); Osmolality Calculated 286 mOsm/kg (285-295); Potassium 4.6 mmol/L (3.5-5.1); Sodium 134 mmol/L (136-145); Total Bilirubin 0.4 mg/dL (0.15-1.2); Total Protein 7.1 g/dL (6.6-8.7)
[2024-02-11 01:12] LABS: NT Pro B Type Natriuretic Pept 65 pg/mL (0-450)
--- NOTE | 2024-02-11 02:37 | ED_ITS ---
HPI - SOB/Dyspnea 2 General: Chief Complaint: Shortness of Breath/Dyspnea Stated Complaint: SOB Time Seen by Provider: 02/11/24 00:38 History of Present Illness: HPI Narrative: This patient is a 74-year-old white female halfway patient who was sent for evaluation of shortness of breath. Patient has no complaints here. She states she was recently treated for lower extremity edema but that has improved. She is not having any chest pain. No cough or fever. Related Data Home Medications Medication Instructions Recorded Confirmed aspirin 81 mg tablet,delayed 81 mg PO DAILY 04/30/22 11/28/23 release atorvastatin 40 mg tablet 40 mg PO DAILY 04/30/22 11/28/23 loratadine 10 mg tablet (Allergy 10 mg PO DAILY 04/30/22 11/28/23 Relief (loratadine)) metformin 500 mg tablet 500 mg PO DAILY 04/30/22 11/28/23 sodium chloride 0.65 % nasal spray 1 spray intranasal BID PRN nasal 04/30/22 11/28/23 aerosol (Saline Nasal) congestion sennosides 8.6 mg tablet (senna) ea PO 12/04/22 11/28/23 duloxetine 30 mg capsule,delayed 30 mg PO EVERY OTHER DAY 11/06/23 11/28/23 release Previous Rx's Medication Instructions Recorded albuterol sulfate 90 mcg/actuation 2 inh inhalation QID PRN shortness 09/10/22 aerosol inhaler of breath or wheezing #8.5 grams Inhaler spacer #1 ea 09/12/22 docusate sodium 100 mg capsule 200 mg (2 x 100 mg) PO BID #120 01/07/23 caps furosemide 20 mg tablet (Lasix) 20 mg PO DAILY #30 tabs 02/27/23 polyethylene glycol 3350 17 4 g PO DAILY #119 grams 03/24/23 gram/dose oral powder (Miralax) nystatin 100,000 unit/gram topical 1 applic topical BID #60 grams 04/22/23 powder tramadol 50 mg tablet 50 mg PO BID PRN pain #60 tabs 10/28/23 Allergies Allergy/AdvReac Type Severity Reaction Status Date / Time potato Allergy Unknown Unknown Verified 11/28/23 10:55 oranges Allergy Unknown Unknown Uncoded 11/28/23 10:55 Review of Systems 2 General: Reports: 10 or more systems reviewed and unremarkable except in HPI and below PFS ED 2 PFSH: Medical History (Updated 02/11/24 @ 02:37 by Zurdo Castellanos MD) Chronic diastolic heart failure echo 12/2022 EF normal. 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) cause unknown Stroke Surgical History History of thyroid surgery Hx of hysterectomy Family History Father Stroke Mother Parkinson disease Social History Smoking and tobacco/nicotine status: never used tobacco/nicotine Alcohol intake: never Substance/Drug Use: never Physical Exam 2 Const: COMMON NORMALS: no acute distress, patient oriented x3 and no limitations GENERAL APPEARANCE: cooperative and comfortable HENMT: COMMON NORMALS: normocephalic, atraumatic, Normal nasal mucous membranes and turbinates present, moist oral mucous membranes and oropharynx normal HEAD & SCALP: normal to inspection, normocephalic and atraumatic F BURKE & SINUS: normal facial exam NOSE: Normal nasal mucous membranes and turbinates present Eye: COMMON NORMALS: Equal, round and reactive pupils present, EOMs intact bilaterally and conjunctivae normal GENERAL EYE: appearance normal, both eyes and all related structures CONJUNCTIVA: Yes conjunctivae normal PUPIL: Yes Equal, round and reactive pupils present Neck/C-Spine: COMMON NORMALS: supple and no JVD Chest: COMMONS NORMALS: normal inspection of the chest Resp: COMMON NORMALS: normal respiratory effort and clear to auscultation bilaterally AUSCULTATION: clear to auscultation bilaterally Cardio: COMMON NORMALS: no JVD, regular rate, regular rhythm, No gallops present (Cardio), No murmurs present (Cardio) and No rub (Cardio) RATE: r egular rate RHYTHM: regular rhythm GI: COMMON NORMALS: Soft to palpation and non-tender INSPECTION: Yes abdominal distension AUSCULTATION: Yes normoactive bowel sounds PALPATION: Yes Soft to palpation and No Tenderness to palpation present (GI) : COMMON NORMALS: Yes no CVA tenderness BLADDER/KIDNEY EXAM: Yes no CVA tenderness Back/Pelvis: COMMON NORMALS: no CVA tenderness and thoracic and lumbar spine normal to inspection Extremity: COMMON NORMALS: normal to inspection Neuro: COMMON NORMALS: patient oriented x3 and CN's II-XII intact bilaterally Psych: COMMON NORMALS: mental status grossly normal, Normal thought process present and cooperative THOUGHT PROCESS: Normal thought process present Skin: COMMON NORMALS: no rashes or lesions noted, turgor normal and no jaundice GENERAL SKIN EXAM: no rashes or lesions noted and turgor normal Course 2 Vital Signs: Vital signs: Vital Signs Temperature 97.7 F 02/11/24 00:32 Pulse Rate 88 02/11/24 02:12 Respiratory Rate 15 02/11/24 02:12 Blood Pressure 131/86 02/11/24 02:12 Pulse Oximetry 95 02/11/24 02:12 Oxygen Delivery Me thod Room Air 02/11/24 02:12 MDM - SOB/Dyspnea Medical Decision Making Chest x-ray along with abdominal flatplate and upright films were normal. EKG was normal. CBC and CMP were normal. BNP was 65. Patient was asymptomatic throughout her ER stay. I did have the nurse contact the halfway concerning the patient's protuberant abdomen and they state that is her typical state. She was discharged in stable condition to return back to the halfway. Follow-up with primary care physician as needed. Lab Data 02/11/24 00:20 02/11/24 00:20 Labs/Radiology: Laboratory Results WBC 8.55 10^3/uL (3.29-11.43) 02/11/24 00:20 RBC 4.82 10^6/uL (3.85-5.65) 02/11/24 00:20 Hgb 13.40 g/dL (11.27-16.99) 02/11/24 00:20 Hct 42.4 % (36-47) 02/11/24 00:20 MCV 88.0 fl (85-98) 02/11/24 00:20 MCH 27.8 pg (27-33) 02/11/24 00:20 MCHC 31.6 g/dL (30-55) 02/11/24 00:20 RDW 12.7 % (12.1-15.1) 02/11/24 00:20 Plt Count 303 10^3/cmm (157-399) 02/11/24 00:20 MPV 8.7 fL (7.4-10.4) 02/11/24 00:20 Neut % (Auto) 70.8 % 02/11/24 00:20 Lymph % (Auto) 18.7 % 02/11/24 00:20 [place] % (Auto) 7.8 % 02/11/24 00:20 Eos % (Auto) 1.6 % 02/11/24 00:20 Baso % (Auto) 0.7 % 02/11/24 00:20 Neut # (Auto) 6.05 10^3/uL (1.8-7.7) 02/11/24 00:20 Lymph # (Auto) 1.6 10^3/uL (0.8-4.8) 02/11/24 00:20 [place] # (Auto) 0.7 10^3/uL (0.2-0.9) 02/11/24 00:20 Eos # (Auto) 0.1 10^3/uL (0.0-0.8) 02/11/24 00:20 Baso # (Auto) 0.1 10^3/uL (0.0-0.1) 02/11/24 00:20 Nucleated RBC % (auto) 0 % 02/11/24 00:20 Nucleated RBCs # 0.0 /100WBC 02/11/24 00:20 Sodium 134 mmol/L (136-145) L 02/11/24 00:20 Potassium 4.6 mmol/L (3.5-5.1) 02/11/24 00:20 Chloride 94 mmol/L (98-107) L 02/11/24 00:20 Carbon Dioxide 28 mmol/L (22-29) 02/11/24 00:20 Anion Gap 16.6 (5-19) 02/11/24 00:20 BUN 11 mg/dL (8-23) 02/11/24 00:20 Creatinine 0.8 mg/dL (0.5-0.9) 02/11/24 00:20 GFR Calculation Not Reportable 02/11/24 00:20 Glucose 259 mg/dL (65-115) H 02/11/24 00:20 Calculated Osmolality 286 mOsm/kg (285-295) 02/11/24 00:20 Calcium 9.4 mg/dL (8.5-10.5) 02/11/24 00:20 Total Bilirubin 0.4 mg/dL (0.15-1.2) 02/11/24 00:20 AST 19 U/L (0-32) 02/11/24 00:20 ALT 33 U/L (0-33) 02/11/24 00:20 Alkaline Phosphatase 143 U/L (35-105) H 02/11/24 00:20 NT-Pro-B Natriuret Pep 65 pg/mL (0-450) 02/11/24 00:20 Total Protein 7.1 g/dL (6.6-8.7) 02/11/24 00:20 Albumin 4.1 g/dL (3.5-5.2) 02/11/24 00:20 Globulin 3.0 g/dL (1.3-4.6) 02/11/24 00:20 XR interpretation done by ED provider, pending radiology final review Discharge Plan Discharge Patient Disposition: Home Clinical Impression: Shortness of breath Condition: Stable Prescriptions: No Action aspirin 81 mg tablet,delayed release (DR/EC) 81 mg PO DAILY metformin 500 mg tablet 500 mg PO DAILY atorvastatin 40 mg tablet 40 mg PO DAILY Saline Nasal 0.65 % aerosol,spray 1 spray intranasal BID PRN (Reason: nasal congestion) loratadine [Allergy Relief (loratadine)] 10 mg tablet 10 mg PO DAILY albuterol sulfate 90 mcg/actuation HFA aerosol inhaler 2 inh inhalation QID PRN (Reason: shortness of breath or wheezing) Qty: 8.5 2RF sennosides [senna] 8.6 mg tablet PO (DME) Inhaler spacer See Rx Instructions .Route .MEDSUPPLY Qty: 1 0RF Rx Instructions: As directed docusate sodium 100 mg capsule 200 mg PO BID Qty: 120 11RF furosemide [Lasix] 20 mg tablet 20 mg PO DAILY Qty: 30 2RF polyethylene glycol 3350 [Miralax] 17 gram/dose powder 4 g PO DAILY Qty: 119 11RF nystatin 100,000 unit/gram powder 1 applic topical BID Qty: 60 3RF Rx Instructions: apply under both breasts BID tramadol 50 mg tablet 50 mg PO BID PRN (Reason: pain) Qty: 60 2RF duloxetine 30 mg capsule,delayed release(DR/EC) 30 mg PO EVERY OTHER DAY Discharge Orders: Discharge ED (Routine); Ordered 02/11/24 Ordered By: Zurdo Castellanos Referrals: Alf Espinosa DO [Primary Care Provider] - Coding Level of Care Code ED Insurance Advisor for Reinag Michelle
--- NOTE | 2024-02-11 02:50 | PC.NURSE ---
Report called to [facility] Mayda Keen was given patient discharge report. Denied further questions. At this time this nurse has tried to contact pts son (guardian) to provide an update and assist with transportation back to [place].
--- NOTE | 2024-02-11 06:45 | PC.NURSE ---
This nurse spoke with alex Chapin (medical power of contract attorney). Provided an update on what patient was seen for. 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
== END 2024-02-11 09:44 | disposition home or self-care (01) ==
PROVIDERS: Emergency Provider Emergency Medicine; PCP Family Medicine
DX: R06.02 Shortness of breath (principal); Z79.82 Long term (current) use of aspirin; Z79.84 Long term (current) use of oral hypoglycemic drugs; I11.0 Hypertensive heart disease with heart failure; I50.32 Chronic diastolic (congestive) heart failure; E11.9 Type 2 diabetes mellitus without complications; E78.5 Hyperlipidemia, unspecified; Z86.73 Personal history of transient ischemic attack (TIA), and cerebral infarction without residual deficits
CPT/HCPCS: 74022; 80053; 83880; 85025; 93005; 99285

== ENCOUNTER 2024-03-23 02:38 | Emergency (ER) | payer MEDICARE, OTHER, SELFPAY ==
[2024-03-23] VITALS (9 sets, daily range): BP systolic 101–130; BP diastolic 64–99; PULSE 76–92; RESP 12–18; TEMP 36.7; O2SAT 90–94; BMI 30.9
[2024-03-23 02:44] LABS: Glucose Point of Care 179 mg/dL (70-110)
--- NOTE | 2024-03-23 02:44 | XRR_ITS ---
PROCEDURE INFORMATION: Exam: XR Chest Exam date and time: 03/23/2024 3:06 AM Age: 74 years old Clinical indication: Other: Sycopal episode; Additional info: Syncope TECHNIQUE: Imaging protocol: Radiologic exam of the chest. Views: 1 view. COMPARISON: CT angio chest PE protcl [id number] 11/06/2023 4:24 PM FINDINGS: Lungs: No consolidation. Pleural spaces: No pleural effusion. No pneumothorax. Heart/Mediastinum: No cardiomegaly. Bones/joints: No acute findings. XR/XR chest 1V portable [id number] IMPRESSION: No acute chest findings.
--- NOTE | 2024-03-23 02:44 | W.ED.GENADLT ---
HPI - General Adult General: Chief complaint: Syncope Stated complaint: diabetic issues Time Seen by Provider: 03/23/24 02:43 History of Present Illness: Patient presents via [facility] after a possible syncopal episode where she would just was staring off in space when attempting to get her at the bathroom. Patient has limited verbal ability with her answers being yes no work tomorrow. Patient has had a stroke in the past and has some spasticity on her right side. Per residential nurses she is back at her baseline currently. Related Data Home Medications Medication Instructions Recorded Confirmed aspirin 81 mg tablet,delayed 81 mg PO DAILY 04/30/22 11/28/23 release atorvastatin 40 mg tablet 40 mg PO DAILY 04/30/22 11/28/23 loratadine 10 mg tablet (Allergy 10 mg PO DAILY 04/30/22 11/28/23 Relief (loratadine)) metformin 500 mg tablet 500 mg PO DAILY 04/30/22 11/28/23 sodium chloride 0.65 % nasal spray 1 spray intranasal BID PRN nasal 04/30/22 11/28/23 aerosol (Saline Nasal) congestion sennosides 8.6 mg tablet (senna) ea PO 12/04/22 11/28/23 duloxetine 30 mg capsule,delayed 30 mg PO EVERY OTHER DAY 11/06/23 11/28/23 release Previous Rx's Medication Instructions Recorded albuterol sulfate 90 mcg/actuation 2 inh inhalation QID PRN shortness 09/10/22 aerosol inhaler of breath or wheezing #8.5 grams Inhaler spacer #1 ea 09/12/22 docusate sodium 100 mg capsule 200 mg (2 x 100 mg) PO BID #120 01/07/23 caps furosemide 20 mg tablet (Lasix) 20 mg PO DAILY #30 tabs 02/27/23 polyethylene glycol 3350 17 4 g PO DAILY #119 grams 03/24/23 gram/dose oral powder (Miralax) nystatin 100,000 unit/gram topical 1 applic topical BID #60 grams 04/22/23 powder tramadol 50 mg tablet 50 mg PO BID PRN pain #60 tabs 10/28/23 Allergies Allergy/AdvReac Type Severity Reaction Status Date / Time potato Allergy Unknown Unknown Verified 03/23/24 02:44 oranges Allergy Unknown Unknown Uncoded 03/23/24 02:44 Review of Systems General: Reports: 10 or more systems reviewed and unremarkable except in HPI and below PFSH ED PFSH: Medical History Chronic diastolic heart failure echo 12/2022 EF normal. 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) cause unknown Stroke Surgical History History of thyroid surgery Hx of hysterectomy Family History Father Stroke Mother Parkinson disease Social History Smoking and tobacco/nicotine status: never used tobacco/nicotine Alcohol intake: never Substance/Drug Use: never Physical Exam Const: COMMON NORMALS: no acute distress, average body habitus, healthy appearing, alert and well nourished HENMT: COMMON NORMALS: normocephalic, atraumatic, hearing grossly normal bilaterally, external ears normal, Normal external nose present and moist oral mucous membranes HEAD & SCALP: normocephalic and atraumatic NOSE: Normal external nose present EXTERNAL EAR: Yes external ears normal Neck/C-Spine: COMMON NORMALS: full ROM, no lymphadenopathy, supple, no meningeal signs, no JVD and Thyroid normal THYROID: Thyroid normal Chest: COMMONS NORMALS: normal inspection of the chest and normal palpation of entire chest wall Resp: COMMON NORMALS: normal respiratory effort, No retractions, No use of accessory muscles and clear to auscultation bilaterally AUSCULTATION: clear to auscultation bilaterally Cardio: COMMON NORMALS: no JVD, regular rate, regular rhythm, S1 normal heart sound present, S2 normal heart sound present, No gallops present (Cardio), No clicks present (Cardio), No murmurs present (Cardio) and No rub (Cardio) RATE: regular rate RHYTHM: regular rhythm HEART SOUNDS: S1 normal heart sound present and S2 normal heart sound present GI: COMMON NORMALS: Normal to inspection, nondistended, normoactive bowel sounds present, Soft to palpation, non-tender, No hepatosplenomegaly present and no masses PALPATION: Yes Soft to palpation and Yes No hepatosplenomegaly present Extremity: NARRATIVE EXTREMITY EXAM: Spasticity noted in right upper extremity Neuro: SENSORIUM/ORIENTATION: Yes alert MENINGEAL SIGNS: Yes no meningeal signs Course Vital Signs: Vital signs: Vital Signs Temperature 98.0 F 03/23/24 02:39 Pulse Rate 85 03/23/24 09:30 Respiratory Rate 13 03/23/24 06:00 Blood Pressure 111/64 03/23/24 09:30 Pulse Oximetry 92 03/23/24 09:30 Oxygen Delivery Me thod Room Air 03/23/24 09:28 MDM - General Adult Medical Decision Making Patient presents with syncopal type episode, with known history of previous stroke with right distribution of hemiparesis, lab work was essentially unremarkable as well as chest x-ray and head CT, patient be discharged back home to her residential. Medical Records I reviewed the patient's medical records. Lab Data I reviewed the patient's lab results. 03/23/24 02:53 03/23/24 02:53 Radiology Impressions Chest X-Ray 03/23/24 02:44 IMPRESSION: No acute chest findings. Head CT 03/23/24 02:49 IMPRESSION: 1. No acute intracranial hemorrhage. 2. Large left MCA distribution encephalomalacia. Laboratory Results WBC 7.72 10^3/uL (3.29-11.43) 03/23/24 02:53 RBC 4.73 10^6/uL (3.85-5.65) 03/23/24 02:53 Hgb 13.10 g/dL (11.27-16.99) 03/23/24 02:53 Hct 40.8 % (36-47) 03/23/24 02:53 MCV 86.3 fl (85-98) 03/23/24 02:53 MCH 27.7 pg (27-33) 03/23/24 02:53 MCHC 32.1 g/dL (30-55) 03/23/24 02:53 RDW 12.7 % (12.1-15.1) 03/23/24 02:53 Plt Count 275 10^3/cmm (157-399) 03/23/24 02:53 MPV 9.0 fL (7.4-10.4) 03/23/24 02:53 Neut % (Auto) 62.4 % 03/23/24 02:53 Lymph % (Auto) 27.2 % 03/23/24 02:53 Oliver % (Auto) 7.9 % 03/23/24 02:53 Eos % (Auto) 1.3 % 03/23/24 02:53 Baso % (Auto) 0.8 % 03/23/24 02:53 Neut # (Auto) 4.82 10^3/uL (1.8-7.7) 03/23/24 02:53 Lymph # (Auto) 2.1 10^3/uL (0.8-4.8) 03/23/24 02:53 Oliver # (Auto) 0.6 10^3/uL (0.2-0.9) 03/23/24 02:53 Eos # (Auto) 0.1 10^3/uL (0.0-0.8) 03/23/24 02:53 Baso # (Auto) 0.1 10^3/uL (0.0-0.1) 03/23/24 02:53 Nucleated RBC % (auto) 0 % 03/23/24 02:53 Nucleated RBCs # 0.0 /100WBC 03/23/24 02:53 Sodium 136 mmol/L (136-145) 03/23/24 02:53 Potassium 4.0 mmol/L (3.5-5.1) 03/23/24 02:53 Chloride 97 mmol/L (98-107) L 03/23/24 02:53 Carbon Dioxide 27 mmol/L (22-29) 03/23/24 02:53 Anion Gap 16.0 (5-19) 03/23/24 02:53 BUN 11 mg/dL (8-23) 03/23/24 02:53 Creatinine 0.8 mg/dL (0.5-0.9) 03/23/24 02:53 GFR Calculation Not Reportable 03/23/24 02:53 Glucose 182 mg/dL (65-115) H 03/23/24 02:53 POC Glucose 179 mg/dL (70-110) H 03/23/24 02:41 Calculated Osmolality 286 mOsm/kg (285-295) 03/23/24 02:53 Calcium 8.7 mg/dL (8.5-10.5) 03/23/24 02:53 Total Bilirubin 0.3 mg/dL (0.15-1.2) 03/23/24 02:53 AST 31 U/L (0-32) 03/23/24 02:53 ALT 33 U/L (0-33) 03/23/24 02:53 Alkaline Phosphatase 137 U/L (35-105) H 03/23/24 02:53 Troponin T Baseline 18 ng/L (0-10) H 03/23/24 02:53 Troponin T 120 Minute 16.96 ng/L (0-10) H 03/23/24 04:32 Delta Troponin T -1.04 ABS# (0-10) L 03/23/24 04:32 NT-Pro-B Natriuret Pep 57 pg/mL (0-450) 03/23/24 02:53 Total Protein 6.3 g/dL (6.6-8.7) L 03/23/24 02:53 Albumin 4.1 g/dL (3.5-5.2) 03/23/24 02:53 Globulin 2.2 g/dL (1.3-4.6) 03/23/24 02:53 All radiology interpretation(s) finalized by discharge Discharge Plan Discharge Patient Disposition: Home Clinical Impression: Syncope Qualifiers: Syncope type: unspecified Qualified Code(s): R55 - Syncope and collapse Condition: Stable Prescriptions: No Action aspirin 81 mg tablet,delayed release (DR/EC) 81 mg PO DAILY metformin 500 mg tablet 500 mg PO DAILY atorvastatin 40 mg tablet 40 mg PO DAILY Saline Nasal 0.65 % aerosol,spray 1 spray intranasal BID PRN (Reason: nasal congestion) loratadine [Allergy Relief (loratadine)] 10 mg tablet 10 mg PO DAILY albuterol sulfate 90 mcg/actuation HFA aerosol inhaler 2 inh inhalation QID PRN (Reason: shortness of breath or wheezing) Qty: 8.5 2RF sennosides [senna] 8.6 mg tablet PO (DME) Inhaler spacer See Rx Instructions .Route .MEDSUPPLY Qty: 1 0RF Rx Instructions: As directed docusate sodium 100 mg capsule 200 mg PO BID Qty: 120 11RF furosemide [Lasix] 20 mg tablet 20 mg PO DAILY Qty: 30 2RF polyethylene glycol 3350 [Miralax] 17 gram/dose powder 4 g PO DAILY Qty: 119 11RF nystatin 100,000 unit/gram powder 1 applic topical BID Qty: 60 3RF Rx Instructions: apply under both breasts BID tramadol 50 mg tablet 50 mg PO BID PRN (Reason: pain) Qty: 60 2RF duloxetine 30 mg capsule,delayed release(DR/EC) 30 mg PO EVERY OTHER DAY Discharge Orders: Discharge ED (Routine); Ordered 03/23/24 Ordered By: Elgin Londono Referrals: Alf Espinosa, [Primary Care Provider] - 1 week Patient Instructions: Syncope in Older Adults (ED) Activity Restrictions/Additional Instructions: Please follow-up with your family practice physician within the next 7 to 10 days for further evaluation and treatment. If your symptoms return or worsen please feel free to return to the ER. Thank you for choosing [facility] for your healthcare needs today. Please realize that you were seen in the emergency department and that we are providing you with an emergency medical screening exam and this may not be a complete and all exclusive of all testing and/or medical workup we may need to determine your element or severity of your illness. It is very important that you follow-up as instructed with your primary care provider or specialist for the additional evaluation and to discuss your medical treatment plan. You may return to the emergency department should you have concerns or if your condition changes or worsens in any way. Coding Level of Care Code ED [employer] for [employer]
--- NOTE | 2024-03-23 02:48 | ECG_ITS ---
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: : [id number] Requested By: Elgin Londono Order Number: [id number] Reading MD: RUBY DE LA ROSA Measurements Intervals [place] Rate: 80 P: 67 VT: 204 QRS: 23 QRSD: 73 T: 48 QT: 369 QTc: 426 Interpretive Statements SINUS RHYTHM POSSIBLE LEFT ATRIAL ENLARGEMENT [-0.1mV P-WAVE IN V1/V2] LOW QRS VOLTAGE IN PRECORDIAL LEADS [QRS DEFLECTION < 1.0 mV IN CHEST LEADS] Compared to ECG 02/11/2024 00:36:11 ST (T wave) deviation no longer present Electronically Signed On 03-24-2024 20:10:29 CDT by RUBY DE LA ROSA [email or web address]
--- NOTE | 2024-03-23 02:49 | CTR_ITS ---
PROCEDURE INFORMATION: Exam: CT Head Without Contrast Exam date and time: 03/23/2024 3:21 AM Age: 74 years old Clinical indication: Altered mental status/memory loss; Age related cognitive decline; Additional info: Syncope TECHNIQUE: Imaging protocol: Computed tomography of the head without contrast. Radiation optimization: All CT scans at this facility use at least one of these dose optimization techniques: automated exposure control; mA and/or kV adjustment per patient size (includes targeted exams where dose is matched to clinical indication); or iterative reconstruction. COMPARISON: No relevant prior studies available. RADIATION DOSE METRICS: Total DLP (mGy-cm): 1103.88 FINDINGS: Brain: No acute intracranial hemorrhage, mass effect or midline shift. Large left MCA distribution encephalomalacia. 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 Cerebral ventricles: No ventriculomegaly. Paranasal sinuses: Visualized sinuses are unremarkable. No fluid levels. Mastoid air cells: Visualized mastoid air cells are well aerated. Bones: Unremarkable. No acute fracture. Soft tissues: Unremarkable. CT/CT head wo con* [id number] IMPRESSION: 1. No acute intracranial hemorrhage. 2. Large left MCA distribution encephalomalacia.
[2024-03-23 03:05] LABS: Basophils # 0.1 10^3/uL (0.0-0.1); Basophils % 0.8 %; Eosinophils # 0.1 10^3/uL (0.0-0.8); Eosinophils % 1.3 %; Hematocrit 40.8 % (36-47); Lymphocytes # 2.1 10^3/uL (0.8-4.8); Lymphocytes % 27.2 %; Mean Corpuscular HGB Conc 32.1 g/dL (30-55); Mean Corpuscular Hemoglobin 27.7 pg (27-33); Mean Corpuscular Volume 86.3 fl (85-98); Monocytes # 0.6 10^3/uL (0.2-0.9); Monocytes % 7.9 %; Neutrophils # 4.82 10^3/uL (1.8-7.7); Neutrophils % 62.4 %; Nucleated Red Blood Cells % 0 %; Platelet Count 275 10^3/cmm (157-399); Red Blood Count 4.73 10^6/uL (3.85-5.65); Red Cell Distribution Width 12.7 % (12.1-15.1); White Blood Count 7.72 10^3/uL (3.29-11.43)
[2024-03-23 03:33] LABS: Troponin(5th) Baseline 18 ng/L (0-10)
[2024-03-23 03:34] LABS: Alanine Aminotransferase 33 U/L (0-33); Albumin Level 4.1 g/dL (3.5-5.2); Alkaline Phosphatase 137 U/L (35-105); Blood Urea Nitrogen 11 mg/dL (8-23); Calcium 8.7 mg/dL (8.5-10.5); Carbon Dioxide 27 mmol/L (22-29); Chloride 97 mmol/L (98-107); Creatinine Clr Calc Pharmacy 61.8411; Globulin 2.2 g/dL (1.3-4.6); Glucose 182 mg/dL (65-115); Osmolality Calculated 286 mOsm/kg (285-295); Sodium 136 mmol/L (136-145); Total Bilirubin 0.3 mg/dL (0.15-1.2); Total Protein 6.3 g/dL (6.6-8.7)
[2024-03-23 03:37] LABS: NT Pro B Type Natriuretic Pept 57 pg/mL (0-450)
[2024-03-23 03:39] LABS: Aspartate Amino Transferase 31 U/L (0-32)
[2024-03-23 04:56] LABS: Troponin 5 2HR 16.96 ng/L (0-10)
[2024-03-23 04:59] LABS: Troponin 5 2HR Delta -1.04 ABS# (0-10)
--- NOTE | 2024-03-23 05:15 | ECG_ITS ---
[facility] Test Date: 2024-03-23 Pat Name: Sabiha Tolbert Department: Room: Gender: Female Associate Partner: : 1950 Requested By: Elgin Londono Order Number: [id number] Reading MD: RUBY DE LA ROSA Measurements Intervals [place] Rate: 81 P: 51 MN: 205 QRS: 29 QRSD: 73 T: 42 QT: 364 QTc: 423 Interpretive Statements SINUS RHYTHM POSSIBLE LEFT ATRIAL ENLARGEMENT [-0.1mV P-WAVE IN V1/V2] LOW QRS VOLTAGE IN PRECORDIAL LEADS [QRS DEFLECTION < 1.0 mV IN CHEST LEADS] Compared to ECG 02/11/2024 00:36:11 ST (T wave) deviation no longer present Electronically Signed On 03-24-2024 20:14:18 CDT by RUBY DE LA ROSA [id number]
--- NOTE | 2024-03-23 06:08 | PC.NURSE ---
Pt update/report was provided to [facility] ebindle Ivana Wen at [place]. Denied further questions. Awaiting transport at thist time.
== END 2024-03-23 09:35 | disposition home or self-care (01) ==
PROVIDERS: Emergency Provider Emergency Medicine; PCP Family Medicine
DX: R55 Syncope and collapse (principal); Z79.84 Long term (current) use of oral hypoglycemic drugs; Z79.82 Long term (current) use of aspirin; I11.0 Hypertensive heart disease with heart failure; I50.32 Chronic diastolic (congestive) heart failure; E11.9 Type 2 diabetes mellitus without complications; E78.5 Hyperlipidemia, unspecified; Z86.73 Personal history of transient ischemic attack (TIA), and cerebral infarction without residual deficits
CPT/HCPCS: 36416; 70450; 71045; 80053; 82962; 83880; 84484; 85025; 93005; 99285

== ENCOUNTER 2024-08-14 09:24 | Outpatient (CLI) | payer MEDICARE, SELFPAY ==
[2024-08-14 09:36] LABS: Basophils # 0.1 10^3/uL (0.0-0.1); Eosinophils # 0.2 10^3/uL (0.0-0.8); Eosinophils % 4.3 %; Hematocrit 40.2 % (36-47); Lymphocytes # 1.4 10^3/uL (0.8-4.8); Lymphocytes % 29.4 %; Mean Corpuscular HGB Conc 32.1 g/dL (30-55); Mean Corpuscular Hemoglobin 28.2 pg (27-33); Mean Corpuscular Volume 87.8 fl (85-98); Mean Platelet Volume 8.9 fL (7.4-10.4); Monocytes # 0.4 10^3/uL (0.2-0.9); Monocytes % 9.1 %; Nucleated Red Blood Cells % 0 %; Platelet Count 293 10^3/cmm (157-399); Red Blood Count 4.58 10^6/uL (3.85-5.65); Red Cell Distribution Width 13.2 % (12.1-15.1); White Blood Count 4.83 10^3/uL (3.29-11.43)
[2024-08-14 09:55] LABS: Alanine Aminotransferase 25 U/L (0-33); Albumin Level 3.9 g/dL (3.5-5.2); Alkaline Phosphatase 141 U/L (35-105); Anion Gap 12.9 (5-19); Aspartate Amino Transferase 17 U/L (0-32); Blood Urea Nitrogen 12 mg/dL (8-23); Carbon Dioxide 30 mmol/L (22-29); Chloride 97 mmol/L (98-107); Cholesterol 107 mg/dL (0-200); Globulin 2.6 g/dL (1.3-4.6); Glucose 231 mg/dL (65-115); HDL Cholesterol 51 mg/dL (60-100); LDL Cholesterol Calculated 39 mg/dL (50-129); LDL HDL Ratio 0.76 RATIO (0.00-3.22); Osmolality Calculated 289 mOsm/kg (285-295); Potassium 3.9 mmol/L (3.5-5.1); Sodium 136 mmol/L (136-145); Total Bilirubin 0.3 mg/dL (0.15-1.2); Total Protein 6.5 g/dL (6.6-8.7); Triglycerides 86 mg/dL (0-150)
== END 2024-08-14 09:25 | disposition home or self-care (01) ==
PROVIDERS: PCP Family Medicine; Visit Provider Family Medicine
DX: I10 Essential (primary) hypertension (principal)
CPT/HCPCS: 80053; 80061; 85025

== ENCOUNTER 2024-08-17 10:44 | Outpatient (CLI) | payer MEDICARE, SELFPAY ==
[2024-08-17 11:18] LABS: Estmated Average Glucose 200; Hemoglobin A1C 8.6 % (4.0-6.0)
== END 2024-08-17 10:45 | disposition home or self-care (01) ==
PROVIDERS: PCP Family Medicine; Visit Provider Family Medicine
DX: R73.9 Hyperglycemia, unspecified (principal)
CPT/HCPCS: 83036

== ENCOUNTER → 2024-09-23 10:32 | Outpatient (BNVA) | payer MEDICARE, SELFPAY | PROVIDERS: PCP Family Medicine; Visit Provider Nurse Practitioner Family | DX: L30.4 Erythema intertrigo (principal); L21.8 Other seborrheic dermatitis; F42.4 Excoriation (skin-picking) disorder; L98.8 Other specified disorders of the skin and subcutaneous tissue; L57.8 Other skin changes due to chronic exposure to nonionizing radiation; X32.XXXA Exposure to sunlight, initial encounter; L81.4 Other melanin hyperpigmentation; L82.1 Other seborrheic keratosis; D48.5 Neoplasm of uncertain behavior of skin; L57.0 Actinic keratosis | CPT/HCPCS: 11102; 17000; 99204 ==

== ENCOUNTER → 2024-11-01 09:51 | Outpatient (BNVA) | payer MEDICARE, OTHER, SELFPAY | PROVIDERS: PCP Family Medicine; Visit Provider Dermatology | DX: C44.41 Basal cell carcinoma of skin of scalp and neck (principal) | CPT/HCPCS: 11623; 12044 ==

== ENCOUNTER 2025-01-01 11:11 | Outpatient (CLI) | payer MEDICARE, OTHER, SELFPAY ==
[2025-01-01 12:07] LABS: Estmated Average Glucose 157; Hemoglobin A1C 7.1 % (4.0-6.0)
== END 2025-01-01 11:12 | disposition home or self-care (01) ==
PROVIDERS: PCP Family Medicine; Visit Provider Family Medicine
DX: R73.09 Other abnormal glucose (principal); D64.9 Anemia, unspecified
CPT/HCPCS: 83036

== ENCOUNTER 2025-04-29 13:52 | Outpatient (CLI) | payer MEDICARE, OTHER, SELFPAY ==
[2025-04-29 14:18] LABS: Glucose Urine UA Negative (Normal); Nitrate Urine Negative (Negative); Specific Gravity, Urine 1.007 (1.005-1.030)
[2025-04-29 14:23] LABS: Add Urine Microscopic? YES
== END 2025-04-29 13:53 | disposition home or self-care (01) ==
LOC: LAB 13:58
PROVIDERS: PCP Family Medicine; Visit Provider Family Medicine
DX: N39.0 Urinary tract infection, site not specified (principal)
CPT/HCPCS: 81001; 87086

== ENCOUNTER 2025-05-23 09:47 | Outpatient (CLI) | payer MEDICARE, OTHER, SELFPAY ==
[2025-05-23 09:59] LABS: Glucose Urine UA Negative (Normal); Nitrate Urine Negative (Negative); Specific Gravity, Urine 1.010 (1.005-1.030)
[2025-05-23 10:04] LABS: Add Urine Microscopic? YES
== END 2025-05-23 09:48 | disposition home or self-care (01) ==
PROVIDERS: PCP Family Medicine; Visit Provider Family Medicine
DX: N39.0 Urinary tract infection, site not specified (principal)
CPT/HCPCS: 81001; 87086